=== PATIENT | male | born 1985 | race American Indian/Alaskan Native ===

== ENCOUNTER 2020-05-30 19:41 | Emergency (ER) | payer OTHER ==
[~2020-05-30] VITALS: Ht 157.5 cm; Wt 45.4 kg
[~2020-05-30 19:41] MED LIST: AUGMENTIN600 MG/5 M PO; DEPAKOTE500 MG PO; DIASTAT2.5 MG PR; DIAZEPAM5 MG PR; KEPPRA100 MG/1 M PO; VALPROIC ACID250 MG PO
== END 2020-05-30 22:42 | disposition home or self-care (01) ==
LOC: ED 19:41
DX: G40.909 Epilepsy, unspecified, not intractable, without status epilepticus (principal); R46.89 Other symptoms and signs involving appearance and behavior; Z20.822 Contact with and (suspected) exposure to COVID-19
CPT/HCPCS: 51701; 70450; 80053; 81001; 85025; 99284-25; C9803; J7040; U0003

== ENCOUNTER 2024-12-01 12:34 | Observation (INO) | payer OTHER ==
[2024-12-01] VITALS (7 sets, daily range): BP systolic 88–112; BP diastolic 49–72
[~2024-12-01] VITALS: Ht 157.5 cm; Wt 39.9 kg
[2024-12-01 13:08] LABS: BASOPHILS 1.7 % (0.2-1.2); EOSINOPHILS 4.3 % (0.8-7.0); LYMPHOCYTES 26.5 % (21.8-53.1); MCH 13.7 PG (25.7-32.2); MCHC 24.4 g/dL (32.3-36.5); MCV 56.4 fL (79.0-92.2); MONOCYTES 9.6 % (5.3-12.2); NEUTROPHILS 57.9 % (34.0-67.9); RBC 4.15 M/uL (4.63-6.08)
[2024-12-01 13:27] LABS: ALT (SGPT) 9.0 U/L (14-59); AST (SGOT) 8.0 U/L (15-37); GLOMERULAR FILTRATION RATE,EST 128.0 mL/min (>60); PROTEIN, TOTAL 7.8 g/dL (6.4-8.2); UREA NITROGEN 7.0 mg/dL (7-18)
[2024-12-01 13:48] LABS: ABO O; ANTIBODY SCREEN NEGATIVE; IS CROSSMATCH COMPATIBLE; RH POSITIVE
[2024-12-01 13:54] LABS: ABO O; RH POSITIVE
[2024-12-01] MEDS ORDERED: ACETAMINOPHEN 325 MG TAB PO PRN (15:30)
[2024-12-01 16:44] LABS: RETIC, PERCENT 0.73 % (0.51-1.81)
[2024-12-01] MEDS ORDERED: LORazepam 2 MG/ML VIAL IV PRN (17:45)
--- NOTE | 2024-12-01 18:00 | NUR ---
ADMISSION COMPLETE AND DOCUMENTED IN THE CHART. SECOND UNIT OF PRBC'S STARTED. NEW ORDERS PUT IN BY THIS RN THAT WERE GIVEN AT BEDSIDE. PATIENT UNCLE CONTINUES TO SIT ON THE COUCH AT BEDSIDE. CALL LIGHT AND PERSONAL BELONGINGS ARE WITHIN REACH.
--- NOTE | 2024-12-01 18:14 | NUR ---
PATIENT IS LYING IN BED WITH EYES OPEN AND RESPIRATIONS ARE EVEN AND UNLABORED. PATIENT IS ON ROOM AIR. PRBC'S CONTINUE TO INFUSE AT 200 ML/HR. PATIENT UNCLE LEFT THE FLOOR AT THIS TIME. CALL LIGHT AND PERSONAL BELONGINGS ARE WITHIN REACH.
--- NOTE | 2024-12-01 20:00 | NUR ---
Pt is alert but does not follow commands- vitals are stable- unable to give meds PO, switched route to IV
[2024-12-01] MEDS ORDERED: leveTIRACETAM 100 MG/1 ML SOLUTION PO SCH (21:00)
[2024-12-01 22:08] LABS: BASOPHILS 0.9 % (0.2-1.2); EOSINOPHILS 2.0 % (0.8-7.0); LYMPHOCYTES 14.6 % (21.8-53.1); MCH 18.8 PG (25.7-32.2); MCHC 29.2 g/dL (32.3-36.5); MCV 64.4 fL (79.0-92.2); MONOCYTES 7.3 % (5.3-12.2); NEUTROPHILS 75.1 % (34.0-67.9); RBC 4.89 M/uL (4.63-6.08)
[2024-12-01 22:20] LABS: SMEAR REVIEW BLOOD SEE COMMENTS
[2024-12-02] VITALS (11 sets, daily range): BP systolic 83–102; BP diastolic 57–71
--- NOTE | 2024-12-02 00:24 | NUR ---
Pt had a full brief- started male purwick to better monitor output- Sinus bayron while sleeping
[2024-12-02 05:22] LABS: BASOPHILS 1.4 % (0.2-1.2); EOSINOPHILS 2.8 % (0.8-7.0); LYMPHOCYTES 19.1 % (21.8-53.1); MCH 18.7 PG (25.7-32.2); MCHC 29.0 g/dL (32.3-36.5); MCV 64.6 fL (79.0-92.2); MONOCYTES 9.2 % (5.3-12.2); NEUTROPHILS 67.2 % (34.0-67.9); RBC 5.08 M/uL (4.63-6.08)
[2024-12-02 05:34] LABS: GLOMERULAR FILTRATION RATE,EST 137.0 mL/min (>60); UREA NITROGEN 7.0 mg/dL (7-18)
[2024-12-02 05:39] LABS: SMEAR REVIEW BLOOD SEE COMMENTS
--- NOTE | 2024-12-02 06:49 | NUR ---
DR. ABARCA UPDATED ON PATIENT'S LABS AND LACK OF INTAKE OR OUTPUT.
--- NOTE | 2024-12-02 06:50 | NUR ---
Pt alert but does not follow commands- he would not take anything PO from me- he has not voided since his brief was changed around 2200 bladder scan showed 137- monitor for now, male jhonathanwick in place- Hgb stable
--- NOTE | 2024-12-02 07:15 | NUR ---
REPORT RECEIVED FROM INSPECTOR EYEGLASS FRAMES RN JULY.
--- NOTE | 2024-12-02 07:48 | NUR ---
PATIENT IS LYING IN BED ON HIS RIGHT SIDE WITH EYES CLOSED AND RESPIRATIONS ARE EVEN AND UNLABORED. PATIENT IS ON ROOM AIR AND ON THE GASKET NOTCHER. CALL LIGHT AND PERSONAL BELONGINGS ARE WITHIN REACH.
--- NOTE | 2024-12-02 08:20 | NUR ---
PT RESTING IN BED WITH EYES CLOSED, LYING ON SIDE. RR EVEN AND UNLABORED. FULL ASSESSMENT COMPLETE AND DOCUMENTED IN CHART. LUNGS WERE DIM THROUGHOUT. S1, S2 AUSCULTATED. PT IS ON MOTION PICTURE PHOTOGRAPHER AND IS IN SINUS RYTHM. RADIAL PULSES STRONG, PEDAL PULSES FAINT AND THREADY. BOWEL TONES ARE ACTIVE. PT WOKE MOMENTARILY DURING ASSESSMENT, BUT NOW RESTING WITH EYES CLOSED AGAIN. PT WITH GROSS MOVEMENT NOTED AND REMAINS NON-VERBAL. MALE PUREWICK IN PLACE AND IV SITES SALINE LOCKED. CALL LIGHT WITHIN REACH.
[2024-12-02] MEDS ORDERED: PANTOPRAZOLE SODIUM 40 MG TABEC PO SCH (09:00)
[2024-12-02] MEDS ORDERED: PANTOPRAZOLE SODIUM 40 MG/10 ML VIAL IV SCH (09:00)
--- NOTE | 2024-12-02 09:16 | NUR ---
ROUNDED WITH ON THE PATIENT AT THIS TIME. PATIENT WITH TWO VISITORS IN THE ROOM AT THIS TIME. BREAKFAST TRAY SET UP IN FRONT OF THE PATIENT WITH A FRESH CUP OF ICE WATER PROVIDED. CALL LIGHT WITHIN REACH.
--- NOTE | 2024-12-02 09:49 | NUR ---
UR CLINICAL REVIEW: MCG, MEETS OBS FOR GENERAL CRITERIA RELATED TO ANEMIA HGB 5.7, TRANSFUSION OF PRBC REQUIRED, TRENDING LABS PAST OBSERVATION PERIOD IN ER. BASIC DMAP (MEDICAID) OBS 12/01/2024 @ 1534 ORDER MATCHES REG NO AUTH REQUIRED PER MEDICAID PLAN TO DC TO HOME TODAY, WITH [facility] 12/03/2024
--- NOTE | 2024-12-02 09:58 | NUR ---
MED REC COMPLETE
--- NOTE | 2024-12-02 10:00 | NUR ---
PATIENT IS LYING IN BED WITH HOB ELEVATED. PATIENT WITH EYES CLOSED AND RESPIRATIONS ARE EVEN AND UNLABORED. PATIENT WITH FAMILY MEMBERS AT BEDSIDE.
--- NOTE | 2024-12-02 10:00 | NUR ---
INTO SEE PATIENT. FAMILY PRESENT (UNCLES AT BEDSIDE) PATIENT PERSONAL HEALTH INFORMATION REVIEWED. PATIENT LIVES IN A HOUSE WITH UNCLES AND MOTHER. USES A WHEELCHAIR WHEN GOING OUT BUT MOSTLY "SCOOTS AROUND" THE HOUSE. FAMILY HAS A WHEELCHAIR VAN AVAILABLE TO TRANSPORT HIM. THEY STATE THEY HAD DIFFCULTY PAYING UTLITIES THIS MONTH AND REACHED OUT TO [facility] TO HELP WITH ASSISTANCE. PATIENT UNCLE EXPLAINED THAT THE PATIENT HAS HAD ALOT OF LIFE CHANGES IN THE LAST COUPLE OF WEEKS. HIS MOTHER WHO PRIMARLY TAKES CARE OF HIM HAD SURGERY AND IS CURRENTLY IN SNF AND HIS FATHER UNEXPECTEDLY. PATIENT HAS A ROUTINE HE HAS HAS NOT BEEN ABLE TO KEEP WITH THE UNEXPECTED CHANGES. THEY TYPICALLY EAT THREE MEALS A DAY AND HE HAS SLOWLY DECREASED HIS APPETITE. HE ALSO HAD A SEZURIE ON THURSDAY NIGHT. HIS FAMILY TOOK HIM TO [facility] TO SEE HIS PCP WHICH PROMPTED THEM TO COME TO THE HOSPITAL. PATIENT ALSO WAS UNABLE TO FILL HIS MEDICATION DUE TO KLINE NOT TAKING [facility]. THEY ARE CURRENTLY GETTING ESTABLISHED WITH DR. VALLADARES AT [facility] IN [place]. HE HAS AN APT WITH HIM ON 12-07 AND I SCHEDULED HIM A FOLLOW UP WITH [facility] ON 12-06 TO FOLLOW UP WITH PCP. CHART NOTES FAXED TO [facility].
--- NOTE | 2024-12-02 11:06 | NUR ---
PT RESTING IN BED WITH EYES CLOSED. UNTOUCHED BREAKFAST TRAY CLEARED BY FRANCISCA DONOHUE. UNCLE REMAINS AT BEDSIDE. CALL LIGHT WITHIN REACH.
--- NOTE | 2024-12-02 11:11 | NUR ---
BROUGHT PATIENT'S VISITOR A CUP OF COFFEE ALSO A REMOTE CONTROL. I ASKED VISTOR WHAT HE LIKED TO WATCH AND HE SAID [employer].
[2024-12-02] MEDS ORDERED: PHARMACY RENAL DOSE ADJUSTMENT 1 DOSE MISC PO SCH (12:00)
--- NOTE | 2024-12-02 13:21 | NUR ---
PATIENT IS LYING IN BED WITH EYES CLOSED AND RESPIRATIONS ARE EVEN AND UNLABORED. PATIENT WITH A VISITOR SITTING AT THE BEDSIDE AND TRYING TO HELP THE PATIENT DRINK A MILKSHAKE. CALL LIGHT IS WITHIN REACH.
--- NOTE | 2024-12-02 14:55 | NUR ---
PATIENT IS LYING IN BED WITH EYES CLOSED AND RESPIRATIONS ARE EVEN AND UNLABORED. PATIENT DRANK TWO DRINKS OF PEPSI. PATIENT AUNT IS IN THE ROOM. ROUNDED ON THE PATIENT AT THIS TIME. MD STATED HE IS GOING TO DISCHARGE THE PATIENT. PATIENT FAMILY MEMBERS SAID THEY WOULD BE ABLE TO TAKE HIM HOME. CALL LIGHT WITHIN REACH.
[2024-12-03 18:05] LABS: IRON BINDING CAPACITY TOTAL 372 ug/dL (240-450); IRON,SERUM OR PLASMA 7 ug/dL (45-182); TRANSFERRIN SATURATION 2 %sat (20-50)
== END 2024-12-02 15:50 | disposition home or self-care (01) ==
LOC: ED 12:34 → CCU 12:36
PROVIDERS: Emergency Medicine; ADMIT Internal Medicine; ATTEND Internal Medicine
DX: D64.9 Anemia, unspecified (principal); D72.824 Basophilia; G80.9 Cerebral palsy, unspecified; G40.909 Epilepsy, unspecified, not intractable, without status epilepticus; Z79.899 Other long term (current) drug therapy; Z98.2 Presence of cerebrospinal fluid drainage device
CPT/HCPCS: 36415; 36430; 51798; 71260; 74177; 80048; 80053; 82728; 83550; 83735; 85025; 85045; 85060; 86850; 86900; 86901; 86922; 96374; 96375; 96376; 99284-25; G0378; J1953; J2470; P9016; Q9967